=== PATIENT | male | born 1950 | race Caucasian/White ===

== ENCOUNTER → 2016-10-13 | Outpatient (CLI) | payer MEDICARE, OTHER ==
[~2016-10-13] MED LIST: CYAN100074 PO; GLUC1CAP40 PO; MULT-717 PO
== END | disposition home or self-care (01) ==
LOC: CARD 09:53
PROVIDERS: ATTEND Family Medicine
DX: R94.31 Abnormal electrocardiogram [ECG] [EKG] (principal); R53.82 Chronic fatigue, unspecified; R06.00 Dyspnea, unspecified
CPT/HCPCS: 93017; 93325; 93350